=== PATIENT | male | born 1975 | race African-American/Black ===

== ENCOUNTER 2017-04-01 09:36 | Emergency (ER) | payer OTHER ==
[~2017-04-01] VITALS: Ht 180.3 cm; Wt 117.9 kg
[2017-04-01] MEDS ORDERED: VENTOLIN HFA 1818 GM INH (09:48)
[2017-04-01] MEDS ORDERED: CORICIDIN COLD1 EACH PO (10:23)
[2017-04-01] MEDS ORDERED: ACETAMINOPHEN-1 EAC1 PO (10:23)
[2017-04-01] MEDS ORDERED: ZPAK PO (10:23)
[2017-04-01] MEDS ORDERED: TESSALON PERLE100 MG PO (10:23)
[2017-04-01 10:28] LABS: INFLUENZA A ANTIGEN None Detected (None Detect)
[2017-04-01] MEDS ORDERED: VIRTUSSIN AC L118 ML PO (10:41)
[2017-04-01 10:51] VITALS: BP 183/113
== END 2017-04-01 10:53 | disposition home or self-care (01) ==
LOC: M.ERS 09:36
PROVIDERS: Physician Assistant
DX: J10.1 Influenza due to other identified influenza virus with other respiratory manifestations (principal); J20.9 Acute bronchitis, unspecified; I10 Essential (primary) hypertension; J45.909 Unspecified asthma, uncomplicated

== ENCOUNTER 2017-04-03 12:52 | Emergency (ER) | payer OTHER ==
[~2017-04-03] VITALS: Ht 180.3 cm; Wt 117.9 kg
[~2017-04-03 12:52] MED LIST: ACETAMINOPHEN-1 EAC1 PO; CORICIDIN COLD1 EACH PO; TESSALON PERLE100 MG PO; VENTOLIN HFA 1818 GM INH; VIRTUSSIN AC L118 ML PO; ZPAK PO
[2017-04-03] MEDS ORDERED: ALBUTEROL2.5 MG/31 INH (13:37)
[2017-04-03] MEDS ORDERED: PREDNISONE 20 M20 M1 PO (13:37)
[2017-04-03] MEDS ORDERED: NEBULIZER MISCELL ×2 (13:37→13:38)
[2017-04-03 13:47] VITALS: BP 157/99
== END 2017-04-03 13:48 | disposition home or self-care (01) ==
LOC: M.ERS 12:52
DX: J10.1 Influenza due to other identified influenza virus with other respiratory manifestations (principal); J45.909 Unspecified asthma, uncomplicated; Z98.890 Other specified postprocedural states

== ENCOUNTER 2018-09-30 23:56 | Emergency (ER) | payer OTHER ==
[~2018-09-30] VITALS: Ht 180.3 cm; Wt 124.3 kg
[~2018-09-30 23:56] MED LIST changes: +ALBUTEROL2.5 MG/31 INH; +NEBULIZER MISCELL; +PREDNISONE 20 M20 M1 PO
[2018-10-01] MEDS ORDERED: BREO ELLIPTA 11 EACH (00:04)
[2018-10-01] MEDS ORDERED: MEDROLDOSEPACK PO (01:23)
[2018-10-01] MEDS ORDERED: CYCLOBENZAPRINE5 MG PO (01:23)
[2018-10-01] MEDS ORDERED: HYDROCODON-ACE1 EAC7 PO (01:23)
[2018-10-01 01:30] VITALS: BP 135/89
== END 2018-10-01 01:30 | disposition home or self-care (01) ==
LOC: M.ERS 23:56
DX: M54.41 Lumbago with sciatica, right side (principal); J45.909 Unspecified asthma, uncomplicated

== ENCOUNTER 2019-03-04 08:30 | Emergency (ER) | payer OTHER ==
[~2019-03-04] VITALS: Ht 180.3 cm; Wt 127.0 kg
[~2019-03-04 08:30] MED LIST changes: +BREO ELLIPTA 11 EACH; +CYCLOBENZAPRINE5 MG PO; +HYDROCODON-ACE1 EAC7 PO; +MEDROLDOSEPACK PO
[2019-03-04 09:03] LABS: HEMATOCRIT 54.9 % (42.0-52.0); HEMOGLOBIN 18.9 gm/dL (14.0-18.0); MCHC 34.5 g/dL (28.0-37.0); MCV 81.1 fL (80.0-100.0); MPV 8.3 fl. (7.2-11.1); NUCLEATED RBCS 1 /100WBC; PLATELET COUNT* 233 thou/uL (150-400); RBC 6.77 mil/uL (4.50-6.00); RDW-CV 16.1 % (10.5-14.5); WBC 12.8 thou/uL (4.0-11.0)
[2019-03-04 09:11] LABS: CALCIUM 9.4 mg/dL (8.5-10.1); CREATININE 1.6 mg/dL (0.6-1.3); POTASSIUM 4.5 mmol/L (3.5-5.1)
[2019-03-04 09:15] LABS: ALBUMIN 4.2 g/dL (3.4-5.0); TOTAL BILIRUBIN 0.9 mg/dL (<0.1-1.0); TOTAL PROTEIN 8.4 g/dL (6.4-8.2)
[2019-03-04 09:41] LABS: ABSOLUTE EOSINOPHILS 0.3 thou/uL (0.0-0.7); ABSOLUTE LYMPHOCYTES 1.5 thou/uL (0.8-5.3); ATYPICAL LYMPHS 3 %; PLATELET ESTIMATE ADEQUATE
[2019-03-04] MEDS ORDERED: ZOFRAN ODT4 MG PO (11:58)
[2019-03-04 12:08] VITALS: BP 164/101
== END 2019-03-04 12:10 | disposition home or self-care (01) ==
LOC: M.ERS 08:30
PROVIDERS: Emergency Medicine
DX: K52.9 Noninfective gastroenteritis and colitis, unspecified (principal); J45.909 Unspecified asthma, uncomplicated

== ENCOUNTER 2019-03-16 11:25 | Emergency (ER) | payer OTHER ==
[~2019-03-16] VITALS: Ht 180.3 cm; Wt 127.0 kg
[~2019-03-16 11:25] MED LIST changes: +ZOFRAN ODT4 MG PO
[2019-03-16 11:34] VITALS: BP 199/98
[2019-03-16] MEDS ORDERED: CYCLOBENZAPRINE5 MG PO (11:55)
[2019-03-17] MEDS ORDERED: NORCO 5-325 TA1 EAC1 PO (22:43)
== END 2019-03-16 12:09 | disposition home or self-care (01) ==
LOC: M.ERS 11:25
DX: S39.012A Strain of muscle, fascia and tendon of lower back, initial encounter (principal); J45.909 Unspecified asthma, uncomplicated; Z98.890 Other specified postprocedural states; X50.0XXA Overexertion from strenuous movement or load, initial encounter; Y92.89 Other specified places as the place of occurrence of the external cause; Y93.89 Activity, other specified; Y99.8 Other external cause status

== ENCOUNTER 2019-03-17 21:05 | Emergency (ER) | payer OTHER ==
[~2019-03-17] VITALS: Ht 180.3 cm; Wt 127.0 kg
[2019-03-17] MEDS ORDERED: NORCO 5-325 TA1 EAC1 PO (22:43)
[2019-03-17 23:32] VITALS: BP 175/89
== END 2019-03-17 23:33 | disposition home or self-care (01) ==
LOC: M.ERS 21:05
DX: M54.5 Low back pain (principal); J45.909 Unspecified asthma, uncomplicated; Z98.890 Other specified postprocedural states

== ENCOUNTER → 2019-04-18 | Outpatient (CLI) | payer OTHER ==
[~2019-04-18] MED LIST changes: +NORCO 5-325 TA1 EAC1 PO
== END ==
LOC: M.RAD 09:03
DX: M47.816 Spondylosis without myelopathy or radiculopathy, lumbar region (principal); M51.37 Other intervertebral disc degeneration, lumbosacral region; M48.07 Spinal stenosis, lumbosacral region

== ENCOUNTER → 2019-04-30 | Outpatient (CLI) | payer OTHER ==
[~2019-04-30] MED LIST changes: +ALBUTEROL2.5 MG/0.5 INH; +BREO ELLIPTA 11 EACH INH; +IBU800 MG PO
== END ==
LOC: M.PC 04:20
DX: M51.16 Intervertebral disc disorders with radiculopathy, lumbar region (principal); M47.26 Other spondylosis with radiculopathy, lumbar region

== ENCOUNTER → 2019-05-08 | Outpatient (CLI) | payer OTHER | LOC: M.MRI 06:59 | DX: M51.36 Other intervertebral disc degeneration, lumbar region (principal); M51.26 Other intervertebral disc displacement, lumbar region ==

== ENCOUNTER 2019-08-23 15:33 | Emergency (ER) | payer OTHER ==
[~2019-08-23] VITALS: Ht 180.3 cm; Wt 117.9 kg
[2019-08-23] MEDS ORDERED: MEDROLDOSEPACK PO (16:00)
[2019-08-23] MEDS ORDERED: FLEXERIL PO (16:00)
[2019-08-23] MEDS ORDERED: NORCO 5-325 TA1 EAC2 PO (16:00)
[2019-08-23 16:07] VITALS: BP 118/74
== END 2019-08-23 16:08 | disposition home or self-care (01) ==
LOC: M.ERS 15:33
DX: S29.011A Strain of muscle and tendon of front wall of thorax, initial encounter (principal); J45.909 Unspecified asthma, uncomplicated; X50.9XXA Other and unspecified overexertion or strenuous movements or postures, initial encounter; Y93.89 Activity, other specified; Y92.89 Other specified places as the place of occurrence of the external cause; Y99.8 Other external cause status

== ENCOUNTER 2020-04-03 01:01 | Emergency (ER) | payer OTHER ==
[~2020-04-03] VITALS: Ht 180.3 cm; Wt 122.5 kg
[~2020-04-03 01:01] MED LIST changes: +FLEXERIL PO; +NORCO 5-325 TA1 EAC2 PO
[2020-04-03] MEDS ORDERED: NORFLEX100 MG PO (01:26)
[2020-04-03] MEDS ORDERED: TORADOL 10 MG T10 MG PO (01:26)
[2020-04-03 02:00] VITALS: BP 189/89
== END 2020-04-03 02:00 | disposition home or self-care (01) ==
LOC: M.ERS 01:01
DX: S76.011A Strain of muscle, fascia and tendon of right hip, initial encounter (principal); J45.909 Unspecified asthma, uncomplicated; X50.9XXA Other and unspecified overexertion or strenuous movements or postures, initial encounter; Y93.89 Activity, other specified; Y92.89 Other specified places as the place of occurrence of the external cause; Y99.8 Other external cause status